=== PATIENT | female | born 1980 | race Caucasian/White ===

== ENCOUNTER 2021-01-01 18:20 | Emergency (ER) | payer MEDICAID ==
[~2021-01-01] VITALS: Ht 165.1 cm; Wt 68.9 kg
[2021-01-01 18:30] VITALS: Ht 165.1 cm; Wt 68.9 kg
[2021-01-01 19:44] LABS: BASOPHIL % 0.2 % (0.2-1.3); RED CELL DISTRIBUTION WIDTH 13.1 % (12.3-17.7)
[2021-01-01 19:53] LABS: PLATELET COUNT 453 x10^3mcL (179-408)
[2021-01-01 20:29] LABS: CALCIUM 8.4 mg/dL (8.5-10.1); CARBON DIOXIDE 27.4 mmol/L (21-32); CHLORIDE SERUM 100 mmol/L (98-107); CREATININE SERUM 0.9 mg/dL (0.6-1.0); GFR1 > 60 mL/min; GLUCOSE SERUM 112 mg/dL (74-106); POTASSIUM SERUM 3.7 mmol/L (3.5-5.1); SODIUM SERUM 138 mmol/L (136-145)
[2021-01-01 20:33] LABS: ALBUMIN 4.1 g/dL (3.4-5.0); ALKALINE PHOSPHATASE 81 U/L (46-116); ALT/SGPT 146 U/L (14-59); AST/SGOT 52 U/L (15-37); BILIRUBIN TOTAL 0.86 mg/dL (0.20-1.00); TOTAL PROTEIN, SERUM 7.8 g/dL (6.4-8.2)
[2021-01-01] MEDS ORDERED: EPIPEN0.3 MG/0.1 IM (23:27)
[2021-01-02] VITALS: BP 127/71
== END 2021-01-02 | disposition home or self-care (01) ==
LOC: ED 18:20
PROVIDERS: Specialist
DX: L50.9 Urticaria, unspecified (principal)
CPT/HCPCS: J0171; J1200; J2930; J7030